=== PATIENT | female | born 1985 | race Caucasian/White ===

== ENCOUNTER → 2016-08-13 | Day surgery (SDC) | payer BC, OTHER ==
[~2016-08-13] VITALS: Ht 170.2 cm; Wt 90.3 kg
[~2016-08-13] MED LIST: CELE20TA PO; EXCETAB80 PO; IBUP80TA PO; KETOROLAC 60 MG/2 ML VIAL (J1885) As Ordered ONE; LIDOCAINE 1% MDV 20ML VIAL As Ordered ONE; LIDOCAINE 2% INJ 100 MG/5 ML SDV (FOR ANES.) As Ordered ONE; LR 1,000 ML IV SCH; METHYLERGONOVINE MALEATE 0.2 MG/ML VIAL (J2210) As Ordered ONE; METHYLERGONOVINE MALEATE 0.2 MG/ML VIAL (J2210) IM ONE; METOCLOPRAMIDE INJ 10MG/2ML VIAL (J2765) IV PRN; MIDAZOLAM INJ 2 MG/2 ML VIAL (J2250) As Ordered ONE; NS 1,000 ML IV SCH; ONDANSETRON 4MG/2ML VIAL (J2405) As Ordered ONE; ONDANSETRON 4MG/2ML VIAL (J2405) IV PRN; PERCOCET 5MG/325MG TAB PO PRN; PROPOFOL 200 MG/20 ML VIAL As Ordered ONE; SUCCINYLCHOLINE 100 MG/5 ML SYRINGE (J0330) As Ordered ONE; dexameTHASONE 4 MG/ML 1ML VIAL (J1100) As Ordered ONE; fentaNYL 100 MCG/2 ML INJECTION (J3010) As Ordered ONE; fentaNYL 100 MCG/2 ML INJECTION (J3010) IV PRN; miSOPROStol 200 MCG TAB (S0191) As Ordered ONE; miSOPROStol 200 MCG TAB (S0191) PV ONE
--- NOTE | 2016-08-13 14:18 | REP ---
FIRST TRIMESTER ULTRASOUND: Real-time sonographic evaluation of pelvis performed utilizing transabdominal and endovaginal technique. Uterine length is 13.3 cm. Within the uterus, in the endometrial canal, are parts which are not clearly seen. There is no amniotic fluid. There is no heart motion with Doppler color evaluation. There appears to be placental tissue as well. Ovaries could not be visualized. There appears to be a posterior uterine fibroid measuring 6.7 x 7.6 x 5.1 cm. IMPRESSION: Patient is status post attempt at . There are ill-defined parts and placental tissue in the uterus without amniotic fluid. No heart motion is detected. Signed by Michoacano Hartman MD 08/13/2016 03:57 P
[2016-08-13 14:27] LABS: BASO % 0.2 % (0.0-1.0); EOS % 0.3 % (0.0-3.0); LARGE UNSTAINED CELL # 0.1 K/mm3 (0.0-0.4); LARGE UNSTAINED CELL % 0.8 % (0.0-4.0); LYMPH # 1.3 K/mm3 (1.5-4.5); LYMPH % 8.4 % (24.0-44.0); MEAN CORPUSCULAR HEMOGLOBIN 28.9 pg (27.0-33.0); MEAN CORPUSCULAR HGB CONC 33.6 g/dl (32.0-36.5); MONO # 0.5 K/mm3 (0.0-0.8); MONO % 3.3 % (0.0-5.0); NEUTROPHILS # 13.5 K/mm3 (1.8-7.7); PLATELET COUNT, AUTOMATED 348 k/mm3 (150-450); RED CELL DISTRIBUTION WIDTH 12.1 % (11.5-14.5); WHITE BLOOD COUNT 15.5 K/mm3 (4.0-10.0)
[2016-08-13] MEDS: PERCOCET 5MG/325MG TAB PO PRN ×2 (17:54→18:22)
[2016-08-13 19:25] VITALS: BP 120/64
--- NOTE | 2016-08-14 13:40 | RO ---
DATE OF PROCEDURE: 08/13/2016 PREPROCEDURE DIAGNOSES: 1. Incomplete , 11 weeks. 2. Fibroid uterus. POSTPROCEDURE DIAGNOSES: 1. Incomplete , 11 weeks. 2. Fibroid uterus. PROCEDURE: DEC under ultrasound guidance. SURGEON: Gonzales Ulloa MD ANIMAL SHELTER CLERK: ANESTHESIA: General endotracheal. ESTIMATED BLOOD LOSS: 200 mL. FINDINGS: 11 week fetus with placenta. There was a 9 x 8 cm posterior left sided fundal intramural fibroid. DESCRIPTION OF PROCEDURE: The patient was taken to the operating room where general endotracheal anesthesia was induced. She was prepped and draped in a sterile fashion in the dorsal lithotomy position. A Speculum was placed in the vagina. Ultrasound guidance was used throughout the procedure. The anterior lip of the cervix was grasped with tenaculum. Cervix was dilated with tapered dilators. Cervical canal was noted to deviate severely anteriorly and to the right due to the presence of a large posterior left sided fibroid. A #12 mm suction curette was placed through the internal os under ultrasound guidance. The suction device was activated and the curette was gently rotated until products of conception were noted coming through the suction tubing. Sharp curettage was performed. Due to increased bleeding, the patient received Methergine 0.2 mg intramuscularly, as well as Cytotec 800 mcg per rectum. Bleeding stopped. Postoperative ultrasound revealed a normal endometrial stripe and a scant amount of endometrial fluid. parts were examined and all parts were accounted for. Placenta was also accounted for. All instruments were removed. Sponge and instrument counts were correct. [facility]
== END | disposition home or self-care (01) ==
LOC: M ED 13:57 → M SDC 14:30
PROVIDERS: ATTEND Specialist
DX: O02.1 Missed abortion (principal); D25.1 Intramural leiomyoma of uterus; E66.9 Obesity, unspecified
CPT/HCPCS: 59820; 76801; 76817; 84702; 85025; 86850; 86900; 86901; 88305; 99284; J0330; J1100; J1885; J2210; J2250; J2405; J3010

== ENCOUNTER → 2016-11-23 | Outpatient (CLI) | payer BC, OTHER ==
[~2016-11-23] MED LIST changes: -KETOROLAC 60 MG/2 ML VIAL (J1885) As Ordered ONE; -LIDOCAINE 1% MDV 20ML VIAL As Ordered ONE; -LIDOCAINE 2% INJ 100 MG/5 ML SDV (FOR ANES.) As Ordered ONE; -LR 1,000 ML IV SCH; -METHYLERGONOVINE MALEATE 0.2 MG/ML VIAL (J2210) As Ordered ONE; -METHYLERGONOVINE MALEATE 0.2 MG/ML VIAL (J2210) IM ONE; -METOCLOPRAMIDE INJ 10MG/2ML VIAL (J2765) IV PRN; -MIDAZOLAM INJ 2 MG/2 ML VIAL (J2250) As Ordered ONE; -NS 1,000 ML IV SCH; -ONDANSETRON 4MG/2ML VIAL (J2405) As Ordered ONE; -ONDANSETRON 4MG/2ML VIAL (J2405) IV PRN; -PERCOCET 5MG/325MG TAB PO PRN; -PROPOFOL 200 MG/20 ML VIAL As Ordered ONE; -SUCCINYLCHOLINE 100 MG/5 ML SYRINGE (J0330) As Ordered ONE; -dexameTHASONE 4 MG/ML 1ML VIAL (J1100) As Ordered ONE; -fentaNYL 100 MCG/2 ML INJECTION (J3010) As Ordered ONE; -fentaNYL 100 MCG/2 ML INJECTION (J3010) IV PRN; -miSOPROStol 200 MCG TAB (S0191) As Ordered ONE; -miSOPROStol 200 MCG TAB (S0191) PV ONE
--- NOTE | 2016-11-24 06:31 | REP ---
Clinical: Fibroid uterus . Technique: Transabdominal pelvic ultrasound followed by transvaginal examination for better evaluation of the endometrium and adnexa with color Doppler evaluation of the ovaries. Findings: Bladder is unremarkable and measures 10.5 x 8.8 x 9.2 cm . Anteverted uterus measures 8.9 x 4.1 x 6.7 cm with a 4.9 x 3.9 x 4.5 cm left lateral intramural fibroid. The endometrial complex measures 5.70 mm thickness. Bilateral ovaries are normal in appearance and vascularity without evidence for torsion. Right ovary measures 2.9 x 1.6 x 2.7 cm ; R I = 0.55 . Left ovary measures 2.3 x 1.4 x 2.2 cm ; R I = 0.49 . Small amount of free fluid in the pelvis likely physiologic. . Impression: 1. 4.9 cm left lateral intramural fibroid Signed by David Borges MD 11/24/2016 06:23 A
== END ==
LOC: M RAD 16:44
PROVIDERS: ATTEND Obstetrics & Gynecology
DX: D25.9 Leiomyoma of uterus, unspecified (principal); R93.8 Abnormal findings on diagnostic imaging of other specified body structures

== ENCOUNTER → 2018-06-23 | Outpatient (CLI) | payer BC, OTHER ==
--- NOTE | 2018-06-23 16:52 | REP ---
Unilateral right ribs PA chest five views History: Rib pain The lungs are clear. The heart is normal in size. The pulmonary vasculature is normal in appearance. There is a fracture of the right 7th rib. Impression: Right 7th rib fracture. Electronically Signed by Gonzales Dixon MD 06/23/2018 04:43 P
== END ==
LOC: M LRY 16:20
PROVIDERS: ATTEND Nurse Practitioner Family
DX: S22.31XA Fracture of one rib, right side, initial encounter for closed fracture (principal); R07.81 Pleurodynia; X58.XXXA Exposure to other specified factors, initial encounter; Y92.9 Unspecified place or not applicable

== ENCOUNTER → 2019-03-20 | Outpatient (CLI) | payer BC ==
[2019-03-20 18:52] LABS: FREE T4 0.9 NG/DL (0.76-1.46); THYROID STIMULATING HORMONE 2.65 uIU/ML (0.358-3.740)
[2019-03-20 18:54] LABS: FOLLICLE STIMULATING HORMONE 6.4 mIU/mL; LUTEINIZING HORMONE 13.1 mIU/mL; PROGESTERONE 0.97 NG/ML
[2019-03-24 00:06] LABS: DEHYDROEPIANDROSTERONE SULFATE 403.9 ug/dL (57.3-279.2); TESTOSTERONE FREE (DIRECT) 5.4 pg/mL (0.0-4.2)
== END ==
LOC: M SMT 15:48
PROVIDERS: ATTEND Advanced Practice Midwife
DX: N91.1 Secondary amenorrhea (principal)

== ENCOUNTER → 2019-04-07 | Outpatient (REF) | payer BC | LOC: M LAB REF 17:26 | PROVIDERS: ATTEND Advanced Practice Midwife | DX: R30.0 Dysuria (principal) ==

== ENCOUNTER → 2019-05-01 | Outpatient (CLI) | payer BC ==
[2019-05-01 20:56] LABS: HEMOGLOBIN A1c 5.9 %
== END ==
LOC: M WUC 16:05
PROVIDERS: ATTEND Advanced Practice Midwife
DX: E28.2 Polycystic ovarian syndrome (principal)

== ENCOUNTER → 2019-11-08 | Outpatient (CLI) | payer OTHER ==
--- NOTE | 2019-11-09 03:19 | REP ---
Clinical: Early with vaginal bleeding/spotting. Technique: Transabdominal and transvaginal first trimester obstetrical ultrasound with color Doppler evaluation. Findings: Ultrasound examination demonstrates a presumed gestational sac without yolk sac or pole. Mean sac diameter of 1.4 cm corresponds to 5 weeks 4 days gestational age with estimated date of delivery 07/06/2020. Bilateral maternal ovaries are normal. Impression: Presumed gestational sac without yolk sac and pole. Differential diagnosis includes blighted ovum as well as early . Correlation with serial HCG levels and repeat ultrasound as necessary.
== END ==
LOC: M WHC 15:40
PROVIDERS: ATTEND Advanced Practice Midwife
DX: O09.521 Supervision of elderly multigravida, first trimester (principal)

== ENCOUNTER → 2019-11-09 | Outpatient (CLI) | payer OTHER | LOC: M WUC 09:16 | PROVIDERS: ATTEND Advanced Practice Midwife | DX: O09.521 Supervision of elderly multigravida, first trimester (principal) ==

== ENCOUNTER → 2019-11-10 | Outpatient (CLI) | payer OTHER | LOC: M WUC 10:11 | PROVIDERS: ATTEND Advanced Practice Midwife | DX: O26.851 Spotting complicating pregnancy, first trimester (principal); O09.521 Supervision of elderly multigravida, first trimester; Z3A.01 Less than 8 weeks gestation of pregnancy ==

== ENCOUNTER → 2019-11-16 | Outpatient (CLI) | payer OTHER | LOC: M WUC 09:29 | PROVIDERS: ATTEND Advanced Practice Midwife | DX: O26.851 Spotting complicating pregnancy, first trimester (principal) ==

== ENCOUNTER → 2019-11-22 | Outpatient (CLI) | payer OTHER | LOC: M WUC 11:37 | PROVIDERS: ATTEND Advanced Practice Midwife | DX: O03.9 Complete or unspecified spontaneous abortion without complication (principal) ==

== ENCOUNTER → 2019-11-29 | Outpatient (CLI) | payer OTHER | LOC: M WUC 14:56 | PROVIDERS: ATTEND Advanced Practice Midwife | DX: O03.9 Complete or unspecified spontaneous abortion without complication (principal) ==

== ENCOUNTER → 2019-12-06 | Outpatient (CLI) | payer OTHER | LOC: M WUC 13:16 | PROVIDERS: ATTEND Advanced Practice Midwife | DX: O03.9 Complete or unspecified spontaneous abortion without complication (principal) ==

== ENCOUNTER → 2020-07-12 | Outpatient (REF) | payer BC | LOC: M PLALAB 16:37 | PROVIDERS: ATTEND Obstetrics & Gynecology | DX: Z12.4 Encounter for screening for malignant neoplasm of cervix (principal) ==

== ENCOUNTER → 2020-08-12 | Outpatient (CLI) | payer BC | LOC: M WUC 12:08 | PROVIDERS: ATTEND Advanced Practice Midwife | DX: Z34.90 Encounter for supervision of normal pregnancy, unspecified, unspecified trimester (principal); Z3A.00 Weeks of gestation of pregnancy not specified ==

== ENCOUNTER → 2020-08-14 | Outpatient (CLI) | payer BC | LOC: M WUC 14:19 | PROVIDERS: ATTEND Advanced Practice Midwife | DX: Z34.90 Encounter for supervision of normal pregnancy, unspecified, unspecified trimester (principal); Z87.59 Personal history of other complications of pregnancy, childbirth and the puerperium ==

== ENCOUNTER → 2020-08-15 | Outpatient (CLI) | payer BC ==
--- NOTE | 2020-08-15 13:26 | REP ---
INDICATION: PREG, DATING/VIABILITY COMPARISON: None. TECHNIQUE: Transabdominal and transvaginal 1st trimester obstetrical ultrasound with color Doppler evaluation. FINDINGS: Single live early intrauterine is appreciated. Gestational sac with yolk sac and pole identified. [place]-rump length of 4 mm corresponds to 6 weeks 1 day gestational age with estimated date of delivery 04/09/2021. heart rate equals 116 beats per minute. No gross abnormalities are identified. IMPRESSION: Single live early intrauterine at 6 weeks 1 day gestational age. Complete anatomical assessment should be performed and 19-20 weeks. <Electronically signed by David Borges > 08/15/20 [id number]
== END ==
LOC: M RAD 12:05
PROVIDERS: ATTEND Advanced Practice Midwife
DX: Z34.82 Encounter for supervision of other normal pregnancy, second trimester (principal)

== ENCOUNTER → 2020-08-28 | Outpatient (REF) | payer BC ==
[2020-08-28 15:30] LABS: HEMATOCRIT 38.1 % (36.0-47.0); HEMOGLOBIN 12.7 g/dl (12.0-15.5); MEAN CORPUSCULAR HEMOGLOBIN 29.4 pg (27.0-33.0); MEAN CORPUSCULAR HGB CONC 33.3 g/dl (32.0-36.5); MEAN CORPUSCULAR VOLUME 88.2 fl (80.0-96.0); PLATELET COUNT, AUTOMATED 362 10^3/uL (150-450); RED BLOOD COUNT 4.32 10^6/uL (4.00-5.40); WHITE BLOOD COUNT 12.4 10^3/uL (4.0-10.0)
[2020-08-28 16:45] LABS: HEPATITIS C VIRUS ABY INDEX < 0.0 INDEX (<0.8); HIV 1&2 SCREEN CENTAUR NEGATIVE (NEGATIVE)
== END ==
LOC: M PLALAB 13:51
PROVIDERS: ATTEND Advanced Practice Midwife
DX: O09.521 Supervision of elderly multigravida, first trimester (principal)

== ENCOUNTER → 2020-09-27 | Outpatient (CLI) | payer BC | LOC: M PLALAB 15:30 | PROVIDERS: ATTEND Advanced Practice Midwife | DX: O09.521 Supervision of elderly multigravida, first trimester (principal) ==

== ENCOUNTER → 2020-11-29 | Outpatient (CLI) | payer BC ==
--- NOTE | 2020-12-01 08:11 | REP ---
INDICATION: ANATOMY EDD1 COMPARISON: None. TECHNIQUE: Transabdominal obstetrical ultrasound with color Doppler evaluation. FINDINGS: Examination demonstrates a single live intrauterine in breech presentation. motion is identified by technologist. Placenta is noted posterior and grade 1 without evidence for placenta previa or abruption. Amniotic fluid volume is normal. Cervix measures 4.3 cm in length and appears closed.. Selected gestational age: 21 weeks 2 days with WALTER 04/09/2021. Gestational age by current measurements 22 weeks 1 day with WALTER 04/03/2021. FHR equals 138 beats per minute. Estimated weight 449 grams (70thpercentile). Anatomical assessment is significantly limited. Visualize normal structures include lungs, diaphragm, stomach, abdominal wall, kidneys, bladder, spine, and extremities.. IMPRESSION: Single live intrauterine in breech presentation demonstrating appropriate estimated weight. Anatomical examination is limited due to positioning and motion. Follow-up examination is warranted. <Electronically signed by David Borges > 12/01/20 [id number]
== END ==
LOC: M WHC 13:55
PROVIDERS: ATTEND Advanced Practice Midwife
DX: O09.521 Supervision of elderly multigravida, first trimester (principal); O32.1XX0 Maternal care for breech presentation, not applicable or unspecified; Z3A.21 21 weeks gestation of pregnancy

== ENCOUNTER → 2020-12-26 | Outpatient (CLI) | payer BC ==
--- NOTE | 2020-12-27 00:37 | REP ---
INDICATION: F/U ANATOMY COMPARISON: 11/29/2020 TECHNIQUE: Transabdominal obstetrical ultrasound with color Doppler evaluation. FINDINGS: Examination demonstrates a single live intrauterine in cephalic presentation. motion is identified by technologist. Placenta is noted posterior and grade 1 without evidence for placenta previa or abruption. Amniotic fluid volume is normal. Cervix measures 3.7 cm in length and appears closed.. Selected gestational age: 25 weeks 1 day with WALTER 04/09/2021. Gestational age by current measurements 26 weeks 1 day with WALTER 04/02/2021. FHR equals 149 beats per minute. Estimated weight 889 grams (82ndpercentile). Anatomical assessment demonstrates normal structures including cranium, choroid plexus, cavum, cerebellum/posterior fossa, facial features, four-chamber heart/ventricular outflow tracts, stomach, cord insertion/three-vessel cord, and bladder. IMPRESSION: Single live intrauterine in cephalic presentation demonstrating appropriate estimated weight. In conjunction with prior examination anatomical assessment is complete and normal. <Electronically signed by David Borges > 12/27/20 [id number]
== END ==
LOC: M WHC 10:45
PROVIDERS: ATTEND Advanced Practice Midwife
DX: O09.522 Supervision of elderly multigravida, second trimester (principal); Z3A.25 25 weeks gestation of pregnancy

== ENCOUNTER → 2021-03-12 | Outpatient (REF) | payer BC ==
[~2021-03-12] MED LIST changes: +ASPI81TA26 PO; +PREN200C PO; +UNIS25TA3 PO
== END ==
LOC: M SFHCWAGY 13:40
PROVIDERS: ATTEND Specialist
DX: Z34.03 Encounter for supervision of normal first pregnancy, third trimester (principal); Z3A.00 Weeks of gestation of pregnancy not specified

== ENCOUNTER → 2022-07-06 | Outpatient (CLI) | payer BC ==
[~2022-07-06] MED LIST changes: +OXYC1TAB23 PO; +PYRI200T6 PO; +ZOFR4TAB16 PO
== END ==
LOC: M WUC 11:43
PROVIDERS: ATTEND Advanced Practice Midwife
DX: O20.9 Hemorrhage in early pregnancy, unspecified (principal); Z3A.00 Weeks of gestation of pregnancy not specified

== ENCOUNTER → 2022-10-13 | Outpatient (CLI) | payer BC ==
[2022-10-13 17:19] LABS: THYROID STIMULATING HORMONE 0.008 uIU/ML (0.55-4.78); TOTAL T3 246.5 NG/DL (60.0-181.0)
[2022-10-13 17:20] LABS: FREE T4 1.27 NG/DL (0.89-1.76)
== END ==
LOC: M PLALAB 15:16
PROVIDERS: ATTEND Internal Medicine Endocrinology, Diabetes & Metabolism
DX: E05.00 Thyrotoxicosis with diffuse goiter without thyrotoxic crisis or storm (principal)

== ENCOUNTER → 2022-11-05 | Outpatient (CLI) | payer BC | LOC: M RAD 14:02 | PROVIDERS: ATTEND Internal Medicine Endocrinology, Diabetes & Metabolism | DX: E05.00 Thyrotoxicosis with diffuse goiter without thyrotoxic crisis or storm (principal) | CPT/HCPCS: 78012; A9516 ==

== ENCOUNTER → 2025-01-11 | Outpatient (CLI) | payer BC, MEDICAID, SELFPAY | LOC: M WHC 08:17 | PROVIDERS: ATTEND Advanced Practice Midwife | DX: Z12.31 Encounter for screening mammogram for malignant neoplasm of breast (principal); R92.313 Mammographic fatty tissue density, bilateral breasts ==

== ENCOUNTER → 2025-01-11 | Outpatient (REF) | payer MEDICAID, SELFPAY ==
[2025-01-11 12:22] LABS: Trichomonas vaginalis (AMP) NOT DETECTED (NEGATIVE)
[2025-01-11 12:46] LABS: GC DNA AMPLIFICATION NEGATIVE (NEGATIVE)
[2025-01-13 15:20] LABS: HPV APTIMA Not Detected (Not Detected)
== END ==
LOC: M SFHCWAGY 09:59
PROVIDERS: ATTEND Advanced Practice Midwife
DX: Z11.3 Encounter for screening for infections with a predominantly sexual mode of transmission (principal); Z11.51 Encounter for screening for human papillomavirus (HPV); Z12.4 Encounter for screening for malignant neoplasm of cervix